=== PATIENT | female | born 1945 | race Asian ===

== ENCOUNTER 2017-04-13 12:07 | Emergency (ER) | payer MEDICARE, OTHER ==
[~2017-04-13] VITALS: Ht 154.9 cm; Wt 59.5 kg
[2017-04-13 12:52] VITALS: Ht 154.9 cm; Wt 59.5 kg
[2017-04-13 15:45] VITALS: BP 136/77
== END 2017-04-13 15:45 | disposition home or self-care (01) ==
LOC: ED 12:07
DX: J06.9 Acute upper respiratory infection, unspecified (principal); J02.9 Acute pharyngitis, unspecified; I10 Essential (primary) hypertension; E11.9 Type 2 diabetes mellitus without complications; Z79.84 Long term (current) use of oral hypoglycemic drugs

== ENCOUNTER 2017-06-15 13:25 | Emergency (ER) | payer MEDICARE, OTHER ==
[~2017-06-15] VITALS: Ht 157.5 cm; Wt 57.6 kg
[2017-06-15 13:39] VITALS: Ht 157.5 cm; Wt 57.6 kg
[2017-06-15 15:59] VITALS: BP 112/68
== END 2017-06-15 16:00 | disposition home or self-care (01) ==
LOC: ED 13:25
DX: R21 Rash and other nonspecific skin eruption (principal); I10 Essential (primary) hypertension; E11.9 Type 2 diabetes mellitus without complications

== ENCOUNTER 2018-07-04 08:00 | Day surgery (SDC) | payer MEDICARE, OTHER ==
[~2018-07-04] VITALS: Ht 157.5 cm; Wt 59.9 kg
[2018-07-04 09:44] VITALS: BP 141/74
[2018-07-04 14:43] VITALS: BP 150/80
== END 2018-07-04 12:15 | disposition home or self-care (01) ==
LOC: DS 08:00 → OR 08:30 → DS 08:30 → OR 09:30 → DS 12:15
PROVIDERS: Internal Medicine Gastroenterology
PROC: 06L38CZ Occlusion of Esophageal Vein with Extraluminal Device, Via Natural or Artificial Opening Endoscopic (ICD-10-PCS; principal; 2018-07-04 08:30)
PROC: 0DB68ZX Excision of Stomach, Via Natural or Artificial Opening Endoscopic, Diagnostic (ICD-10-PCS; 2018-07-04 08:30)
DX: K74.69 Other cirrhosis of liver (principal); I85.10 Secondary esophageal varices without bleeding; D69.59 Other secondary thrombocytopenia; K76.6 Portal hypertension; K31.89 Other diseases of stomach and duodenum
CPT/HCPCS: 43235; J1200; J1610; J2250; J2310; J3010; J3490

== ENCOUNTER 2019-03-12 07:07 | Day surgery (SDC) | payer MEDICARE, OTHER ==
[~2019-03-12] VITALS: Ht 157.5 cm; Wt 59.9 kg
[2019-03-12 07:40] VITALS: BP 155/70
[2019-03-12 09:47] VITALS: BP 144/75
== END 2019-03-12 11:00 | disposition home or self-care (01) ==
LOC: DS 07:07 → OR 08:00 → DS 08:00
DX: K74.60 Unspecified cirrhosis of liver (principal); I85.10 Secondary esophageal varices without bleeding; M17.0 Bilateral primary osteoarthritis of knee; M19.012 Primary osteoarthritis, left shoulder; M19.011 Primary osteoarthritis, right shoulder; E11.9 Type 2 diabetes mellitus without complications; Z79.84 Long term (current) use of oral hypoglycemic drugs; Z79.899 Other long term (current) drug therapy; Z90.49 Acquired absence of other specified parts of digestive tract; Z98.890 Other specified postprocedural states
CPT/HCPCS: 43235; J1200; J1610; J2250; J2310; J3010; J3490

== ENCOUNTER 2019-03-27 11:25 | Inpatient (IN) | payer OTHER, MEDICARE ==
[~2019-03-27] VITALS: Ht 154.9 cm; Wt 60.3 kg
--- NOTE | 2019-03-27 12:00 | NUR ---
PER PT DAUGHTER PT HAS NOT BEEN ACTING WITHIN NORMAL LIMITS. PER DAUGHTER PT WAS USING RESTROOM AND ASKED IF SHE WAS DONE AND PT RESPONED "OH IM USING THE RESTROOM". PT IS ALERT AND ORIENTED X4 AT [facility] [place]. WHEN PT AMBULATED TO RESTROOM SHE HAD MILD DRIFTING AND STS SHE FELT "WEAK", PT ASSISTED BACK TO [facility] WITH NO COMPLICATIONS. PT HAS MID LEFT QUAD PAIN, PER FAMILY "PT NORMAL" FROM SURGERY YEARS AGO. PT DENIES ANY DYURIA. -FACIAL DROOP, +EQUAL REAL ESTATE CLOSER, -DRIFT. PT PLACED ON CM. NO DISTRESS NOTED. VSS RESP E/U. WILL CONTINUE TO MONITOR. PT DENIES ANY CHEST PAIN, -V/D, HAS MILD NASUEA. DR. LAIRD MADE AWARE.
--- NOTE | 2019-03-27 12:10 | NUR ---
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
--- NOTE | 2019-03-27 12:32 | NUR ---
DR. LAIRD AT BEDSIDE FOR MSE.
--- NOTE | 2019-03-27 12:43 | NUR ---
LAB AT BEDSIDE, EKG IN PROGRESS.
--- NOTE | 2019-03-27 12:52 | NUR ---
PT TAKEN TO CT.
[2019-03-27 12:58] LABS: BASOPHIL % 0.3 % (0-2); RED CELL DISTRIBUTION WIDTH 17.2 % (11.5-14.5)
--- NOTE | 2019-03-27 13:00 | NUR ---
PT RETURNED FROM CT.
--- NOTE | 2019-03-27 13:01 | NUR ---
XRAY AT BEDSIDE.
[2019-03-27 13:12] LABS: CALCIUM 8.3 mg/dL (8.5-10.1); CARBON DIOXIDE 27.3 mmol/L (21-32); CHLORIDE SERUM 102 mmol/L (98-107); CREATININE SERUM 0.9 mg/dL (0.6-1.0); GLUCOSE SERUM 307 mg/dL (74-106); POTASSIUM SERUM 4.1 mmol/L (3.5-5.1); SODIUM SERUM 137 mmol/L (136-145)
[2019-03-27 13:17] LABS: ALKALINE PHOSPHATASE 97 U/L (46-116); ALT/SGPT 40 U/L (14-59); AST/SGOT 58 U/L (15-37); BILIRUBIN TOTAL 2.2 mg/dL (0.20-1.00); TOTAL PROTEIN, SERUM 7.8 g/dL (6.4-8.2)
[2019-03-27 13:28] LABS: ALBUMIN 2.6 g/dL (3.4-5.0)
[2019-03-27 13:59] LABS: PLATELET COUNT 44 x10^3mcL (130-400)
--- NOTE | 2019-03-27 15:03 | NUR ---
PT IN POSITION OF COMFORT. VSS. RESP E/U. WILL CONTINUE TO MONITOR. PT STS THAT SHE "FEELS FINE".
--- NOTE | 2019-03-27 15:44 | NUR ---
ATTEMPTED TO CALL REPORT TO OSIEL ROMERO "I DONT KNOW ABOUT THIS PT I WILL CALL YOU BACK".
[2019-03-27 15:49] LABS: CHOLESTEROL/HDL RATIO 2.5
--- NOTE | 2019-03-27 15:59 | NUR ---
REPORT GIVEN TO OSIEL HORNE, STS TO WAIT TO BRING PT UP ROOM IS DIRTY.
[2019-03-27] MEDS ORDERED: LOVASTATIN20 MG PO (16:02)
[2019-03-27] MEDS ORDERED: GOOD SENSE OMEP20 MG PO (16:02)
[2019-03-27] MEDS ORDERED: GLIPIZIDE10 M2 PO (16:02)
[2019-03-27] MEDS ORDERED: PROPRANOLOL HCL20 MG PO (16:02)
--- NOTE | 2019-03-27 16:18 | NUR ---
RECEIVED PT VIA [facility]NEY FROM E/D, ACCOMPANIED BY RN, TRANSPORTER, AND PT'S DAUGHTER, EDE LEE. PT A/A/O X 4, CALM, COOPERATIVE; SPEAKS LATVIAN ("MICRONESIAN"), DAUGHTER RN PERIOPERATIVE @ BEDSIDE. GENERALIZED WEAKNESS, ABLE TO AMBULATE W/ ASSIST W/ SLOW, STEADY GAIT; FALL RISK PROTOCOL IN PLACE. ON TELE # 1, NSR, HR 60, DENIES CHEST PAIN OR DISCOMFORT AT THIS TIME. SCD BY BEDSIDE. NO ACUTE RESPIRATORY DISTRESS NOTED. ABD SOFT, ROUND, NON-TENDER, NORMOACTIVE BOWEL SOUNDS X 4 QUADS, EPISODES OF DSYPHAGIA 2/2 BANDING OF ESOPHAGEAL VARICES (DONE 03/12/19), LAST BM 03/26/19, FORMED; POOR PO INTAKE > 3 DAYS. IV SITE LAC 20G, CDI. ORIENTED PT AND DAUGHTER TO ROOM, BED CONTROLS, CALL LIGHT SYSTEM. SIDE RAILS UP X 2, BED IN LOW POSITION. WILL ENDORSE TO OZZIE CARTAGENA.
--- NOTE | 2019-03-27 17:03 | NUR ---
B/P = 174/69; HYDRALAZINE 10MG PO GIVEN PER ORDER.
[2019-03-27 18:53] VITALS: BP 174/69
--- NOTE | 2019-03-27 19:00 | NUR ---
PATIENT ALERT/ORIENTED X3. FINISHED 90% OF DINNER. TOLERATED WELL. VOID X2 VIA BRP. IVF OF NS 100CC/HR. DENIED PAIN. ENDORSED CARE TO NOC NURSE.
--- NOTE | 2019-03-27 19:15 | NUR ---
RECEIVED PT IN BED AWAKE, ALERT,ORIENTED X4. NO SOB ON ROOM AIR. BOWEL SOUNDS ACTIVE. SHE HAS NO C/O PAIN AT THIS TIME. ASSISTED PT TO THE RESTROOM. SHE HAS GENERALIZED WEAKNESS BUT ABLE TO AMBULATE SLOWLY W/ STEADY GAIT. W/ IVF INFUSING VIA LTC.CALL LIGHT W/IN REACH.
[2019-03-27 20:52] VITALS: BP 106/49
--- NOTE | 2019-03-27 23:30 | NUR ---
PT APPEARS TO BE SLEEPING COMFORTABLY. SHE IS EASILY AROUSABLE AND ANSWERING APPROPRIATELY.
--- NOTE | 2019-03-28 05:07 | NUR ---
PT SLEPT AT LONG INTERVALS. SHE WAS CALM AND REMAINED ORIENTED X4. SHE HAD NO C/O PAIN. SHE IS ABLE TO AMBULATE W/ MINIMAL ASSISTANCE. HL TO LTAC INTACT AND PATENT.
[2019-03-28 05:53] VITALS: BP 150/65
[2019-03-28 06:40] LABS: BASOPHIL % 0.1 % (0-2)
[2019-03-28 06:42] LABS: CALCIUM 8.3 mg/dL (8.5-10.1); CARBON DIOXIDE 23.8 mmol/L (21-32); CHLORIDE SERUM 104 mmol/L (98-107); CREATININE SERUM 0.9 mg/dL (0.6-1.0); GLUCOSE SERUM 126 mg/dL (74-106); MAGNESIUM 1.6 mg/dL (1.8-2.4); POTASSIUM SERUM 3.6 mmol/L (3.5-5.1); SODIUM SERUM 136 mmol/L (136-145)
[2019-03-28 06:51] LABS: PLATELET COUNT 54 x10^3mcL (130-400); RED CELL DISTRIBUTION WIDTH 16.9 % (11.5-14.5)
[2019-03-28 07:46] LABS: microscopic required? YES; urine erythrocyte NEGATIVE (NEGATIVE)
--- NOTE | 2019-03-28 08:00 | NUR ---
SHIFT ASSESSMENT DONE. PATIENTA/A/OX3; [place] SPEAKING. SPEECH CLEARLY. TELE#1; SR; HR = 67; DENIED CHEST PAIN. BREATHING SOUND CLEAR COREY. O2 SAT 96%. GOOD APPETITE. BRP WITH MINIMUM ASSIST. GAIT STEADY. IVHL'D TO LAC. CALL LIGHT IN REACH.
[2019-03-28 08:56] VITALS: BP 125/56
[2019-03-28 10:50] LABS: AMPHETAMINE QUAL UR NONE DETECTED (See below)
[2019-03-28 12:37] VITALS: BP 134/58
--- NOTE | 2019-03-28 13:01 | NUR ---
NOTIFIED DR MITCHELL WITH PATIENT'S MAG LEVEL 1.6.
[2019-03-28 16:26] VITALS: BP 136/60
--- NOTE | 2019-03-28 18:00 | NUR ---
NO NEW ORDER RECEIVED FROM DR. MITCHELL. PATIENT A/A/OX4; DENIED PAIN. TOELRATED DIET WELL. BRP WITH MINIMMUM ASSIST. HAD VOID X2 AND BM X1 THIS SHIFT. IVHL'D TO LAC. ENDORSED CARE TO NOC NURSE.
--- NOTE | 2019-03-28 18:43 | NUR ---
C/O HEADACHE ON 08/24; TYLENOL 650MG PO GIVEN. CONTINUE MONITOR. ENDORSE CARE TO NOC NURSE.
--- NOTE | 2019-03-28 19:20 | NUR ---
RECEIVED PT IN BED AWAKE W/ AT BEDSIDE VISITING. SHE IS ALERT,ORIENTED X4 W/ CLEAR SPEECH. SHE HAS NO C/O HEADACHE AND DIZZINESS AT THIS TIME. NO SOB ON ROOM AIR. BOWEL SOUNDS ACTIVE. . NO C/O ABDL PAIN. W/ HL TO LTAC INTACT. CALL LIGHT W/IN REACH.
--- NOTE | 2019-03-28 20:00 | NUR ---
REPORT RECEVIED FROM OZZIE HOPKINS. PATIENT WAS SEEN RESTING COMFORTABLY IN BED. NO DISTRESS NOTE. BREATHING EVEN AND UNLABORED ON ROOM AIR. NO SOB OR RESP DISTRESS NOTED. DENIES CHEST PAIN/PRESSURE. NO C/O PAIN. IV TO THE LAC. SALINE LOCK. PATENT AND INTACT. NO REDNESS OR SWELLING NOTED. A/OX4. CLEAR AND APPROPAITE SPEECH. COMFORT AND SAFETY MEASURES IN PLACE. BED IS LOCKED AND IN THE LOWEST POSITION. SIDE RAILS UP X2. CALL LIGHT IS WITHIN REACH. WILL CONTINUE TO MONITOR.
--- NOTE | 2019-03-28 20:00 | NUR ---
SPOKE TO PT'S DAUGHTER RAYMOND REGARDING PT'S CONDITION. PT'S DAUGHTER STILL WANTS TO SPEAK TO A RESIDENT OR DOCTOR. DR. RICHEY INFORMED AND ADVISED TO HAVE DAUGHTER COME IN AM WHEN DOCTORS DO THEIR ROUNDS. DAUGHTER INFOMRED BUT SAID THEY ARE ALL WORKING . PER DAUGHTER SHE WANTS TO BE CONTACTED BY THE DOCTOR ANYTIME TOMORROW. ADVISED HER WILL ENDORSE TO AM NURSE.
[2019-03-28 21:40] VITALS: BP 144/67
--- NOTE | 2019-03-28 23:30 | NUR ---
RESTIING IN BED WITH EYES CLOSED. NO DISTRESS NOTED. BREATHING EVEN AND UNLABORED ON ROOM AIR. NO SOB NOTED. NO S/S OF PAIN. SAFETY MEASURES IN PLACE. CALL LIGHT IS WITHIN REACH. WILL CONTINUE TO MONITOR.
--- NOTE | 2019-03-29 00:25 | NUR ---
PATIENT CALLED REPORTING SHE IS REALLY SWEATY AND CANNOT SLEEP. DENIES PAIN. RANDOM BS CHECKED; 139. TEMP ASSESSED; 97.7. HEATER TRUNED OFF AND 1 BLANKET WAS REMOVED. DENIES PAIN. NO DISTRESS NOTED. BREATHING EVEN. WILL CONTINUE TO MONITOR.
--- NOTE | 2019-03-29 03:15 | NUR ---
RESTING IN BED WITH EYES CLOSED. NO DISTRESS NOTED. BREATHING EVEN AND UNLABORED. NO S/S OF PAIN NOTED. SAFETY MEASURES IN PLACE. CALL LIGHT IS WITHIN REACH. WILL CONTINUE TO MONITOR.
--- NOTE | 2019-03-29 04:40 | NUR ---
MG 1.6 NOT COVERED; NOTIFIED DR RICHEY; AWAITING ORDERS.
[2019-03-29 05:18] VITALS: BP 122/57
[2019-03-29 06:37] LABS: CALCIUM 8.3 mg/dL (8.5-10.1); CARBON DIOXIDE 21.6 mmol/L (21-32); CHLORIDE SERUM 102 mmol/L (98-107); CREATININE SERUM 0.9 mg/dL (0.6-1.0); GLUCOSE SERUM 171 mg/dL (74-106); MAGNESIUM 1.7 mg/dL (1.8-2.4); POTASSIUM SERUM 3.7 mmol/L (3.5-5.1); SODIUM SERUM 133 mmol/L (136-145)
--- NOTE | 2019-03-29 06:53 | NUR ---
RESTED IN LONG INTERVALS THROUGHOUT THE NIGHT. NO ACUTE CHANGES NOTED. NO DISTRESS NOTED. BREATHING EVEN ON ROOM AIR. NO SOB NOTED. NO C/O PAIN THROUGHOUT THE NIGHT. SAFETY MEASURES IN PLACE. ALL NEEDS AND CONCERNS ADDRESSED. WILL ENDORSE CARE TO DAY SHIFT RN
[2019-03-29 07:04] LABS: BASOPHIL % 0.2 % (0-2)
--- NOTE | 2019-03-29 07:05 | NUR ---
RECEIVED PATIENT AWAKE/ALERT NO DISTRESS NOTED, C/O NO SLEEP AND FEEL DIZZINESS. SQUAD LEADER ASSIST PATIENT UP TO BATHROOM AT THIS TIME. DENIES PAIN. TELE #1 SR W/ HR 71. IV TO LAC INTACT AND SL NOTED. CONT TO MONITOR.
[2019-03-29 07:40] VITALS: BP 152/49
[2019-03-29 08:01] LABS: RED CELL DISTRIBUTION WIDTH 17.2 % (11.5-14.5)
[2019-03-29 08:02] LABS: PLATELET COUNT 46 x10^3mcL (130-400)
--- NOTE | 2019-03-29 08:49 | NUR ---
PATIENT RESTING IN BED CALM, NO COMPLAIN. PO MEDS ADMINISTERED AND TOLERATED. NEED MET. ASSIST WITH REPOSITIONED. CALL LIGHT WITHIN REACH.
--- NOTE | 2019-03-29 10:21 | NUR ---
ASSIST PATIENT TO BATHROOM, MIN ASSIST PATIENT WORRIED OF FALL D/T OCCAS DIZZINESS. PATIENT EXPRESS HER CONCERN WHEN SHE AT HOME NO BODY THERE TO HELP. OBSERVED PATIENT WALKING INDEPENDENT W/O WEAKNESS. CALL LIGHT WITHIN REACH.
--- NOTE | 2019-03-29 11:12 | NUR ---
DTR GOGO CALL FOR MOTHER UPDATE, WANT THE DOCTOR TO CALL HER FOR UPDATE MOTHER CONDITION AND TEST, WILL INFORM DOCTOR DURING ROUND.
--- NOTE | 2019-03-29 11:44 | NUR ---
PATIENT RESTING IN BED NO COMPLAIN, GAVE 9 UNIT REGULAR SQ FOR BS 274, NEEDS MET. DR. SIERRA WAS INFORM PATIENT'S DTR WANT HER TO GIVE A CALLED.
[2019-03-29 11:46] VITALS: BP 132/56
[2019-03-29] MEDS ORDERED: TRAZODONE50 M1 PO (12:30)
--- NOTE | 2019-03-29 16:03 | NUR ---
PATIENT IN BED AND AT BEDSIDE; GAVE DISCHARGE INSTRUCTION AND MEDICATION EXPLAINED TO PATIENT AND ; INSTRUCT TO CONTINUE HOME MEDS AND [employer] [facility] AT [facility]. INSTRUCT TO F/U WITH PCP SCHEDULE 04/01/19. VERBALIZE UNDERSTAND. REMOVED IV TO LAC W/ CATH INTACT, GAUZES APPLIED TO SITE, NO ERYTHEMA OR SWELLING NOTED. TELEBOX #1 GAVE TO MIKI DYER
--- NOTE | 2019-03-29 16:10 | NUR ---
MUNITIONS HANDLER WHEEL PATIENT OUT VIA WC WITH ALL BELONGINGS.
== END 2019-03-29 16:04 | disposition home or self-care (01) | DRG 52 ==
LOC: ED 11:25 → DU 15:03
PROVIDERS: Emergency Medicine; ADMIT Internal Medicine
DX: I67.4 Hypertensive encephalopathy (principal); E43 Unspecified severe protein-calorie malnutrition; E11.65 Type 2 diabetes mellitus with hyperglycemia; K74.60 Unspecified cirrhosis of liver; R74.0 Nonspecific elevation of levels of transaminase and lactic acid dehydrogenase [LDH]; B18.2 Chronic viral hepatitis C; E83.51 Hypocalcemia; N39.0 Urinary tract infection, site not specified; I10 Essential (primary) hypertension; E78.00 Pure hypercholesterolemia, unspecified; Z90.49 Acquired absence of other specified parts of digestive tract; Z23 Encounter for immunization; Z79.84 Long term (current) use of oral hypoglycemic drugs
CPT/HCPCS: 82962; 90732; 97116-GP; 97530-GP; G0378; J7030; Q0092